=== PATIENT | male | born 1940 | race Two or more races ===

== ENCOUNTER → 2020-07-14 | Outpatient (CLI) | payer OTHER ==
[~2020-07-14] MED LIST: ACET325 PO; AMLO10 PO; ASPI325; ASPI325 PO; ASPI325EC PO; ATOR20 PO; BCOIRO PO; CIPRSO OD; DIPH50; ENAL10 PO; ENAL20 PO; FURO40 PO; GLIM4 PO; INSULANPEN SC; LOVA20 PO; METF500 PO; METO50ER PO; MULVITMIND PO; NIAC500 PO; NIAC500ER PO; OMEP20ER PO; POTA10T PO; POTCHL10ER PO; Prilosec Otc20 MG PO; RANI150 PO; RXOXYACE PO; [UNRECOGNIZED DRUG - OTHER]
== END | disposition home or self-care (01) ==
LOC: LAB SHORT 11:30 → LAB 11:30
DX: S81.801A Unspecified open wound, right lower leg, initial encounter (principal)
CPT/HCPCS: 87070; 87075; 87205

== ENCOUNTER → 2020-08-21 | Outpatient (CLI) | payer OTHER ==
[2020-08-21 13:28] LABS: Alanine Aminotransfer (ALT/SGP 23 U/L (12-78); Albumin, Blood 3.9 g/dL (3.4-5.0); Albumin/Globulin Ratio 0.9 (0.8-1.8); Alk Phos 96 U/L (50-136); Anion Gap 6 mmol/L (6-16); Aspartate Aminotrans (AST/SGOT 13 U/L (12-37); Bilirubin, Total 0.9 mg/dL (0.1-1.0); Blood Urea Nitrogen 25 mg/dL (8-24); Bun/Creatinine Ratio 22.7 (12.0-20.0); CO2, Blood 30 mmol/L (21-32); Calcium, Blood 9.5 mg/dL (8.5-10.1); Chloride, Blood 102 mmol/L (98-108); Globulin, Blood 4.4 g/dL (2.2-4.0); Glomerular Filtration Rate >60 (60-); Glucose, Blood 170 mg/dL (70-99); Sodium, Blood 138 mmol/L (136-145); Total Protein, Blood 8.3 g/dL (6.4-8.2)
[2020-08-21 14:06] LABS: BASOPHILS ABSOLUTE AUTO 0.02 K/mm3 (0.00-0.23); BASOPHILS PERCENT AUTO 0 % (0-2); EOSINOPHILS ABSOLUTE AUTO 0.05 K/mm3 (0.00-0.68); EOSINOPHILS PERCENT AUTO 1 % (0-6); Hematocrit 49.1 % (37.0-53.0); Hemoglobin 16.6 g/dL (13.5-17.5); IMMATURE GRAN ABSOLUTE AUTO 0.03 K/mm3 (0.00-0.10); IMMATURE GRAN PERCENT AUTO 0 % (0-1); LYMPHOCYTES ABSOLUTE AUTO 2.09 K/mm3 (0.84-5.20); LYMPHOCYTES PERCENT AUTO 30 % (21-46); MONOCYTES ABSOLUTE AUTO 0.66 K/mm3 (0.16-1.47); MONOCYTES PERCENT AUTO 10 % (4-13); Mean Corpuscular HGB 31.3 pg (26.0-34.0); Mean Corpuscular HGB Conc 33.8 g/dL (31.5-36.5); Mean Corpuscular Volume 93 fL (80-100); NEUTROPHILS ABSOLUTE AUTO 4.12 K/mm3 (1.96-9.15); NEUTROPHILS PERCENT AUTO 59 % (41-73); RDW Coefficient Variation 12.3 % (11.7-14.2); RDW Standard Deviation 42.3 fL (35.1-46.3); Red Blood Cell Count 5.31 M/mm3 (4.30-5.90); White Blood Cell Count 6.97 K/mm3 (4.00-11.30)
[2020-08-21 14:08] LABS: Mean Platelet Volume 10.5 fL (9.1-12.4); Platelet Count 178 K/mm3 (150-400)
== END ==
LOC: LAB SHORT 10:00 → LAB 10:00
PROVIDERS: Family Medicine
DX: R60.0 Localized edema (principal); Z88.6 Allergy status to analgesic agent
CPT/HCPCS: 80053; 83880; 85025

== ENCOUNTER 2021-02-27 06:42 | Day surgery (SDC) | payer OTHER ==
[~2021-02-27] VITALS: Ht 175.3 cm; Wt 140.8 kg
--- NOTE | 2021-02-27 07:16 | NUR ---
PT AMBULATES TO SDS c SLOW GAIT, INCREASES SOB c EXERTIONS, RECOVERS QUICKLY. History, Chart, Medications and Allergies reviewed before start of procedure. Lungs clear T/O to Auscultation. Patient confirms NPO status and agrees with scheduled surgery. Patient States Post-Procedure ride home has been arranged. CHEM BG 133.
[2021-02-27] MEDS ORDERED: POTA8 PO (07:20)
[2021-02-27] MEDS ORDERED: INSULANI (07:21)
[2021-02-27] MEDS ORDERED: CYCL10 PO (07:21)
[2021-02-27] MEDS ORDERED: FAMO40 PO (07:22)
[2021-02-27] MEDS ORDERED: METF500 PO (07:23)
[2021-02-27] MEDS ORDERED: DABI150C (07:24)
[2021-02-27] MEDS ORDERED: TORSE20 PO (07:25)
--- NOTE | 2021-02-27 08:04 | NUR ---
02/27/21 0804 Gregor Nichols HISTORY,CHART, MEDICATIONS AND ALLERGIES REVIEWED BEFORE START OF PROCEDURE. PATIENT CONFIRMS NPO STATUS AND AGREES WITH SCHEDULED PROCEDURE. 3-LEAD EKG REVIEWED WITH PHYSICIAN PRIOR TO START OF PROCEDURE. MONITOR INTACT WITH CONTINUOUS PULSE OXIMETRY AND INTERMITTENT BP. SUPPLEMENTAL O2 TO BE TITRATED THROUGHOUT PROCEDURE TO MAINTAIN O2 SATURATION ABOVE 90%. PATIENT DETERMINED TO BE ASA APPROPRIATE FOR MODERATE SEDATION PRIOR TO START OF PROCEDURE BY DR. HAYWARD.
--- NOTE | 2021-02-27 09:26 | NUR ---
Patient up to Ambulate independently. Gait steady. Discharge instructions reviewed with patient. Patient verbalizes understanding. Copy given to patient to take home. Discharged via wheelchair to private car for ride home WITH .
== END 2021-02-27 22:50 | disposition home or self-care (01) ==
LOC: ORSCMMR 06:42 → ORD 08:00 → ORSCMMR 08:00
PROVIDERS: Internal Medicine Gastroenterology
PROC: 0DBM8ZX Excision of Descending Colon, Via Natural or Artificial Opening Endoscopic, Diagnostic (ICD-10-PCS; principal; 2021-02-27 08:00)
PROC: 0DBN8ZX Excision of Sigmoid Colon, Via Natural or Artificial Opening Endoscopic, Diagnostic (ICD-10-PCS; principal; 2021-02-27 08:00)
PROC: 0DBL8ZX Excision of Transverse Colon, Via Natural or Artificial Opening Endoscopic, Diagnostic (ICD-10-PCS; principal; 2021-02-27 08:00)
DX: Z12.11 Encounter for screening for malignant neoplasm of colon (principal); Z86.010 Personal history of colon polyps; D12.3 Benign neoplasm of transverse colon; D12.4 Benign neoplasm of descending colon; D12.5 Benign neoplasm of sigmoid colon; I48.20 Chronic atrial fibrillation, unspecified; I25.10 Atherosclerotic heart disease of native coronary artery without angina pectoris; I10 Essential (primary) hypertension; E11.9 Type 2 diabetes mellitus without complications; G47.33 Obstructive sleep apnea (adult) (pediatric); Z79.84 Long term (current) use of oral hypoglycemic drugs; Z79.899 Other long term (current) drug therapy; E66.01 Morbid (severe) obesity due to excess calories; Z68.42 Body mass index [BMI] 45.0-49.9, adult
CPT/HCPCS: 82947; 88305; J2250; J3010; J7120

== ENCOUNTER 2021-04-20 11:37 | Emergency (ER) | payer OTHER ==
[~2021-04-20] VITALS: Ht 175.3 cm; Wt 140.6 kg
[~2021-04-20 11:37] MED LIST changes: +ACET500 PO; +AZIT500 PO; +CEFP200 PO; +CYCL10 PO; +DABI150C PO; +Enalapril Malea20 MG PO; +FAMO40 PO; +Hair, Skin & N1 EACH PO; +IMODIUM A-D2 M1 PO; +INSULANI; +NITR.4SL SL; +POTA8 PO; +TORSE20 PO
[2021-04-20 12:35] LABS: BASOPHILS ABSOLUTE AUTO 0.01 K/mm3 (0.00-0.23); BASOPHILS PERCENT AUTO 0 % (0-2); EOSINOPHILS ABSOLUTE AUTO 0.04 K/mm3 (0.00-0.68); EOSINOPHILS PERCENT AUTO 1 % (0-6); Hematocrit 47.3 % (37.0-53.0); Hemoglobin 15.3 g/dL (13.5-17.5); IMMATURE GRAN ABSOLUTE AUTO 0.01 K/mm3 (0.00-0.10); IMMATURE GRAN PERCENT AUTO 0 % (0-1); LYMPHOCYTES ABSOLUTE AUTO 1.95 K/mm3 (0.84-5.20); LYMPHOCYTES PERCENT AUTO 28 % (21-46); MONOCYTES ABSOLUTE AUTO 0.63 K/mm3 (0.16-1.47); MONOCYTES PERCENT AUTO 9 % (4-13); Mean Corpuscular HGB Conc 32.3 g/dL (31.5-36.5); Mean Corpuscular Volume 96 fL (80-100); Mean Platelet Volume 9.5 fL (9.1-12.4); NEUTROPHILS ABSOLUTE AUTO 4.37 K/mm3 (1.96-9.15); NEUTROPHILS PERCENT AUTO 62 % (41-73); Platelet Count 174 K/mm3 (150-400); RDW Coefficient Variation 12.6 % (11.7-14.2); RDW Standard Deviation 44.1 fL (35.1-46.3); Red Blood Cell Count 4.94 M/mm3 (4.30-5.90); White Blood Cell Count 7.01 K/mm3 (4.00-11.30)
[2021-04-20 12:48] LABS: Alanine Aminotransfer (ALT/SGP 26 U/L (12-78); Albumin, Blood 3.3 g/dL (3.4-5.0); Albumin/Globulin Ratio 0.8 (0.8-1.8); Alk Phos 87 U/L (50-136); Anion Gap 3 mmol/L (6-16); Aspartate Aminotrans (AST/SGOT 19 U/L (12-37); Bilirubin, Total 0.8 mg/dL (0.1-1.0); Blood Urea Nitrogen 15 mg/dL (8-24); Bun/Creatinine Ratio 14.9 (12.0-20.0); CO2, Blood 29 mmol/L (21-32); Calcium, Blood 9.8 mg/dL (8.5-10.1); Chloride, Blood 106 mmol/L (98-108); Creatinine, Blood 1.01 mg/dL (0.60-1.20); Globulin, Blood 4.3 g/dL (2.2-4.0); Glomerular Filtration Rate >60 (60-); Glucose, Blood 133 mg/dL (70-99); Potassium, Blood 4.7 mmol/L (3.5-5.5); Sodium, Blood 138 mmol/L (136-145); Total Protein, Blood 7.6 g/dL (6.4-8.2)
[2021-04-20 13:00] LABS: Troponin I <0.015 ng/mL (0.000-0.040)
== END 2021-04-20 15:29 | disposition home or self-care (01) ==
LOC: ER 11:37
PROVIDERS: Physician Assistant
DX: R53.1 Weakness (principal); R06.00 Dyspnea, unspecified; I11.0 Hypertensive heart disease with heart failure; I50.9 Heart failure, unspecified; I48.20 Chronic atrial fibrillation, unspecified; E11.9 Type 2 diabetes mellitus without complications; G47.30 Sleep apnea, unspecified; I25.10 Atherosclerotic heart disease of native coronary artery without angina pectoris; E78.5 Hyperlipidemia, unspecified; Z87.891 Personal history of nicotine dependence; Z88.6 Allergy status to analgesic agent; Z88.8 Allergy status to other drugs, medicaments and biological substances; Z79.899 Other long term (current) drug therapy; Z79.84 Long term (current) use of oral hypoglycemic drugs; Z79.4 Long term (current) use of insulin
CPT/HCPCS: 36415; 71046; 80053; 84484; 85025; 93005; 93010; 99284-25

== ENCOUNTER 2024-06-22 09:52 | Inpatient (IN) | payer OTHER ==
[~2024-06-22 09:52] MED LIST changes: -AMLO10 PO; +AMLO5 PO; -ATOR20 PO; +ATOR40TA PO; -INSULANI; +INSULANI SC; +LYMEPAK100 MG PO; +METO50 PO; +Metformin HCl750 MG PO; -POTA8 PO; -Prilosec Otc20 MG PO
[2024-06-22 10:16] LABS: BASOPHILS ABSOLUTE AUTO 0.01 K/mm3 (0.00-0.23); BASOPHILS PERCENT AUTO 0 % (0-2); EOSINOPHILS ABSOLUTE AUTO 0.02 K/mm3 (0.00-0.68); EOSINOPHILS PERCENT AUTO 0 % (0-6); Hematocrit 38.5 % (37.0-53.0); Hemoglobin 13.3 g/dL (13.5-17.5); IMMATURE GRAN ABSOLUTE AUTO 0.02 K/mm3 (0.00-0.10); IMMATURE GRAN PERCENT AUTO 0 % (0-1); LYMPHOCYTES ABSOLUTE AUTO 2.36 K/mm3 (0.84-5.20); LYMPHOCYTES PERCENT AUTO 26 % (21-46); MONOCYTES ABSOLUTE AUTO 0.53 K/mm3 (0.16-1.47); MONOCYTES PERCENT AUTO 6 % (4-13); Mean Corpuscular HGB 32.5 pg (26.0-34.0); Mean Corpuscular HGB Conc 34.5 g/dL (31.5-36.5); Mean Corpuscular Volume 94 fL (80-100); NEUTROPHILS PERCENT AUTO 68 % (41-73); Platelet Count 163 K/mm3 (150-400); RDW Standard Deviation 44.8 fL (35.1-46.3); Red Blood Cell Count 4.09 M/mm3 (4.30-5.90); White Blood Cell Count 9.24 K/mm3 (4.00-11.30)
[2024-06-22 11:04] LABS: Albumin, Blood 3.3 g/dL (3.4-5.0); Albumin/Globulin Ratio 0.9 (0.8-1.8); Bilirubin, Total 0.9 mg/dL (0.1-1.0); Bun/Creatinine Ratio 14.9 (12.0-20.0); Calcium, Blood 8.4 mg/dL (8.5-10.1); Creatinine, Blood 1.48 mg/dL (0.60-1.20); Globulin, Blood 3.8 g/dL (2.2-4.0); Potassium, Blood 3.1 mmol/L (3.5-5.5); Total Protein, Blood 7.1 g/dL (6.4-8.2)
[2024-06-22] MEDS ORDERED: ENAL10 PO (11:15)
[2024-06-22] MEDS ORDERED: Isosorbide Mono30 MG PO (11:16)
[2024-06-22] MEDS ORDERED: CYCL10 PO (11:16)
[2024-06-22] MEDS ORDERED: METO50 PO (11:16)
[2024-06-22 12:04] LABS: Influenza A, PCR NEGATIVE (NEGATIVE); Influenza B, PCR NEGATIVE (NEGATIVE); Resp Syncytial Virus, PCR NEGATIVE (NEGATIVE); SARS-Cov-2 (COVID-19) PCR, MMC NEGATIVE (NEGATIVE)
[2024-06-22] MEDS ORDERED: ONDA4ODT MM (12:54)
[2024-06-22] MEDS ORDERED: LOPE2C PO (12:55)
[2024-06-22] MEDS ORDERED: NYSTATIN100000 U13 MT (12:57)
[2024-06-22] MEDS ORDERED: Furosemide 10 MG/ML 10ML Vial IV ONE (16:55)
[2024-06-22] MEDS ORDERED: FLU VACC TS2024-25(6MOS UP)/PF 45 MCG/0.5 ML SYRINGE IM SCH (17:05)
[2024-06-22] MEDS ORDERED: Ondansetron HCl 2 MG / ML 2ML Vial IV PRN (17:05)
[2024-06-22] MEDS ORDERED: Potassium Chloride 40 MEQ in NS 250 ML IV ONE (17:20)
[2024-06-22] MEDS ORDERED: Furosemide 10 MG/ML 4ML Vial IV SCH (18:00)
[2024-06-22] MEDS ORDERED: Enoxaparin 40 MG/0.4 ML SYR SC SCH (18:00)
[2024-06-22] MEDS ORDERED: NS 1,000 ML IV SCH (18:05)
[2024-06-22] MEDS ORDERED: Loperamide HCl 2 MG Cap PO PRN (18:10)
[2024-06-22] MEDS ORDERED: Magnesium Sulf 2 GM/Water 50ML 50 ML IV SCH (19:15)
[2024-06-22 19:54] LABS: Source, Urine Clean Catch
[2024-06-22 20:04] LABS: Bilirubin, Urine Neg (Neg); Blood, Urine Neg (Neg); Glucose Qualitative, Urine Neg (Neg); Ketones, Urine 1+ (Neg); Leukocyte Esterase, Urine 2+ (Neg); Nitrite, Urine Neg (Neg); Protein, Urine Neg (Neg); Urobilinogen, Urine NORM (Normal)
[2024-06-22 20:20] LABS: Appearance, Urine Clear (Clear); Color, Urine Yellow (P-Yellow)
[2024-06-22 20:21] LABS: Bacteria Few /hpf; Red Blood Cells, Urine Not Seen /hpf (0-2); Squamous Epithelial Cells Not Seen /hpf (Few)
[2024-06-22] MEDS ORDERED: OZEMPIC0.25 MG/02 SC (20:59)
[2024-06-22] MEDS ORDERED: SEMGLEE (Y100 UNIT/2 SC (20:59)
[2024-06-22] MEDS ORDERED: Acetaminophen 500 MG Tab PO PRN (21:20)
[2024-06-22] MEDS ORDERED: Cyclobenzaprine HCl 10 MG Tab PO PRN (21:20)
[2024-06-22] MEDS ORDERED: Nitroglycerin 0.4 MG SUBL SL PRN (21:20)
[2024-06-22 21:59] VITALS: BP 141/78
[2024-06-22] MEDS ORDERED: Dabigatran Etexilate Mesylate 150 MG CAPSULE PO SCH (22:00)
[2024-06-23 02:56] LABS: BASOPHILS ABSOLUTE AUTO 0.01 K/mm3 (0.00-0.23); BASOPHILS PERCENT AUTO 0 % (0-2); EOSINOPHILS ABSOLUTE AUTO 0.01 K/mm3 (0.00-0.68); EOSINOPHILS PERCENT AUTO 0 % (0-6); Hematocrit 39.5 % (37.0-53.0); Hemoglobin 13.6 g/dL (13.5-17.5); IMMATURE GRAN ABSOLUTE AUTO 0.03 K/mm3 (0.00-0.10); IMMATURE GRAN PERCENT AUTO 0 % (0-1); LYMPHOCYTES ABSOLUTE AUTO 2.36 K/mm3 (0.84-5.20); LYMPHOCYTES PERCENT AUTO 20 % (21-46); MONOCYTES ABSOLUTE AUTO 0.91 K/mm3 (0.16-1.47); MONOCYTES PERCENT AUTO 8 % (4-13); Mean Corpuscular HGB 32.4 pg (26.0-34.0); Mean Corpuscular HGB Conc 34.4 g/dL (31.5-36.5); Mean Corpuscular Volume 94 fL (80-100); Mean Platelet Volume 10.2 fL (9.1-12.4); NEUTROPHILS ABSOLUTE AUTO 8.46 K/mm3 (1.96-9.15); NEUTROPHILS PERCENT AUTO 72 % (41-73); Platelet Count 184 K/mm3 (150-400); RDW Standard Deviation 44.1 fL (35.1-46.3); White Blood Cell Count 11.78 K/mm3 (4.00-11.30)
[2024-06-23 03:18] LABS: Albumin, Blood 3.4 g/dL (3.4-5.0); Albumin/Globulin Ratio 0.9 (0.8-1.8); Bilirubin, Total 0.8 mg/dL (0.1-1.0); Bun/Creatinine Ratio 15.4 (12.0-20.0); Calcium, Blood 8.4 mg/dL (8.5-10.1); Creatinine, Blood 1.3 mg/dL (0.60-1.20); Globulin, Blood 3.9 g/dL (2.2-4.0); Potassium, Blood 3.7 mmol/L (3.5-5.5); Total Protein, Blood 7.3 g/dL (6.4-8.2)
[2024-06-23] MEDS ORDERED: Omeprazole 20 MG CapCR PO SCH (06:00)
[2024-06-23 06:01] VITALS: BP 137/79
--- NOTE | 2024-06-23 06:40 | NUR ---
SHIFT SUMMARY PATIENT HAS BEEN ABLE TO GET A LITTLE SLEEP DURING THE NIGHT. HE STATES HE IS FEELING BETTER THIS MORNING. HE HAS NOT HAD ANY EPISODES OF NAUSEA OR DIARRHEA. PATIENT IS ORIENTED X4. HE HAS HIS CALL LIGHT WITHIN REACH AND HIS BED ALARM IS SET. SAFETY PRECAUTIONS ARE BEING MAINTAINED. IS AT THE BEDSIDE.
[2024-06-23 07:39] VITALS: BP 125/68
[2024-06-23] MEDS ORDERED: Metoprolol Tartrate 50 MG Tab PO SCH (08:00)
[2024-06-23] MEDS ORDERED: Torsemide 20 MG TAB PO SCH (09:00)
[2024-06-23] MEDS ORDERED: Insulin Glargine-Yfgn 100 Unit/mL 3 ML SYR SC SCH (09:00)
[2024-06-23] MEDS ORDERED: Isosorbide Mononitrate 30 MG TABCR PO SCH (09:00)
[2024-06-23] MEDS ORDERED: Zinc Sulfate 220 MG Cap (Provides 50MG) PO SCH (11:50)
[2024-06-23] MEDS ORDERED: Magnesium Sulf 2 GM/Water 50ML 50 ML IV SCH (12:10)
[2024-06-23 12:33] VITALS: BP 115/61
[2024-06-23 16:52] VITALS: BP 114/72
[2024-06-23 19:14] LABS: Adenovirus F 40/41 Not Detected (NOT DETECT); Astrovirus Not Detected (NOT DETECT); Campylobacter Sp Not Detected (NOT DETECT); Cryptosporidium Not Detected (NOT DETECT); Cyclospora Cayetanensis Not Detected (NOT DETECT); E. Coli O157 Not Detected (NOT DETECT); Entamoeba Histolytica Not Detected (NOT DETECT); Enteroaggregative E. coli-EAEC Not Detected (NOT DETECT); Enteropathogenic E. coli-EPEC Not Detected (NOT DETECT); Enterotoxigenic E. coli-ETEC Not Detected (NOT DETECT); Giardia Lamblia Not Detected (NOT DETECT); Norovirus GI/GII Not Detected (NOT DETECT); Plesiomonas Shigelloides Not Detected (NOT DETECT); Rotavirus A Not Detected (NOT DETECT); Salmonella Sp Not Detected (NOT DETECT); Sapovirus Not Detected (NOT DETECT); Shiga Toxin-prod E. coli-STEC Not Detected (NOT DETECT); Shigella/Enteroin E. coli-EIEC Not Detected (NOT DETECT); Vibrio Cholerae Not Detected (NOT DETECT); Vibrio Sp Not Detected (NOT DETECT); Yersinia Enterocolitica Not Detected (NOT DETECT)
--- NOTE | 2024-06-23 19:27 | NUR ---
SHIFT SUMMARY PATIENT MEDICATED THIS AM FOR NASEA AND VOMITING AFTER GETTING UP FROM CHAIR AND LIGHTHEADED. NO FURTHER N/V EPISODES THROUGH DAY. HE IS TOLERATING FULL LIQUID DIET FOR LUNCH AND DINNER. BED IN LOW POSITION, CALL LIGHT IN REACH. AT BEDSIDE. HE IS OREINTEDX4 AND ABLE TO MAKE NEEDS KNOWN.
[2024-06-23 21:29] VITALS: BP 120/68
[2024-06-24] VITALS (10 sets, daily range): BP systolic 91–126; BP diastolic 57–82
[2024-06-24 06:01] LABS: BASOPHILS ABSOLUTE AUTO 0.01 K/mm3 (0.00-0.23); BASOPHILS PERCENT AUTO 0 % (0-2); EOSINOPHILS ABSOLUTE AUTO 0.04 K/mm3 (0.00-0.68); EOSINOPHILS PERCENT AUTO 1 % (0-6); Hematocrit 36.6 % (37.0-53.0); Hemoglobin 12.3 g/dL (13.5-17.5); IMMATURE GRAN ABSOLUTE AUTO 0.01 K/mm3 (0.00-0.10); IMMATURE GRAN PERCENT AUTO 0 % (0-1); LYMPHOCYTES ABSOLUTE AUTO 1.78 K/mm3 (0.84-5.20); LYMPHOCYTES PERCENT AUTO 24 % (21-46); MONOCYTES ABSOLUTE AUTO 0.71 K/mm3 (0.16-1.47); MONOCYTES PERCENT AUTO 10 % (4-13); Mean Corpuscular HGB 32.1 pg (26.0-34.0); Mean Corpuscular HGB Conc 33.6 g/dL (31.5-36.5); Mean Corpuscular Volume 96 fL (80-100); Mean Platelet Volume 10.4 fL (9.1-12.4); NEUTROPHILS ABSOLUTE AUTO 4.81 K/mm3 (1.96-9.15); NEUTROPHILS PERCENT AUTO 66 % (41-73); Platelet Count 152 K/mm3 (150-400); RDW Standard Deviation 45.7 fL (35.1-46.3); Red Blood Cell Count 3.83 M/mm3 (4.30-5.90); White Blood Cell Count 7.36 K/mm3 (4.00-11.30)
[2024-06-24 06:16] LABS: Albumin, Blood 3.2 g/dL (3.4-5.0); Anion Gap 11 mmol/L (3-11); Blood Urea Nitrogen 21 mg/dL (8-24); Bun/Creatinine Ratio 15.1 (12.0-20.0); CO2, Blood 30 mmol/L (21-32); Calcium, Blood 7.8 mg/dL (8.5-10.1); Chloride, Blood 102 mmol/L (98-108); Creatinine, Blood 1.39 mg/dL (0.60-1.20); Glomerular Filtration Rate 51 (60-); Glucose, Blood 131 mg/dL (70-99); Magnesium, Blood 1.7 mg/dL (1.6-2.4); Phosphorus, Blood 2.4 mg/dL (2.5-4.9); Potassium, Blood 3.5 mmol/L (3.5-5.5); Sodium, Blood 139 mmol/L (136-145)
[2024-06-24] MEDS ORDERED: Lactated Ringer's 1,000 ML IV ONE (08:05)
[2024-06-24] MEDS ORDERED: Potassium Phosphate,Monobasic 500 MG Tablet PO SCH (09:00)
[2024-06-24] MEDS ORDERED: Zinc Sulfate 220 MG Cap (Provides 50MG) PO SCH (09:00)
[2024-06-24] MEDS ORDERED: Caffeine Citrated 60 MG/3 ML Vial ONE (10:06)
[2024-06-24] MEDS ORDERED: Regadenoson 0.4 MG/5 ML SYRINGE ONE (10:06)
--- NOTE | 2024-06-24 12:38 | NUR ---
1235 PT REPORTS FEELING DIZZY BP 91/57 PT ASSISTED BACK TO BED FROM CHAIR WITH GAIT BELT. WALKER AND 2 PERSON ASSIST FAMILY MEMBERS AT BEDSIDE
[2024-06-24] MEDS ORDERED: Furosemide 10 MG/ML 4ML Vial IV SCH ×2 (13:00→18:00)
--- NOTE | 2024-06-24 14:04 | NUR ---
CALLED DR LIZAMA- PT HAD A SBP 91. BREAK RN HELD LASIX AND ASSISTED THE PT BACK TO THE BED FROM THE CHAIR, THIS RN RECHECKED BP ABOUT 1 HOUR LATER AND SBP WAS 118 WHILE LAYING FLAT. SPOKE TO DR LIZAMA AND RECIEVED A OT ORDER FOR ORTHOSTATIC VITALS. ORTHOSTATIC VITALS: LYING 111/72 P 67 SITTING 126/77 P 84 STANDING 105/[address] LIZAMA WITH THE RESULTS. PT WAS ASSSISTED BACK TO BED AND DECLINED TO DRINK THE K-PHOS. ORDER RECIEVED TO HOLD THIS DOSE OF LASIX.
--- NOTE | 2024-06-24 18:25 | NUR ---
PT WENT TO DAY SURG FOR UPPER AND LOWER SCOPE- DAY ASSOCIATE [facility] [employer] CALLED THE PT HAD A C/O A TERRIBLE HEADACHE. PT STATES THE TORADOL SHE RECIEVED ONE TIME YESTERDAY REALLY HELPED AND REQUESTED AN ADDITIONAL DOSE OF THAT. CALLED DR PATTERSON AND RECIEVED AN ORDER FOR A OT DOSE OF TORADOL IF THE PT DOES NOT HAVE ANY BLEEDING ULCERS FOUND IN HER SCOPE.
--- NOTE | 2024-06-24 18:53 | NUR ---
SHIFT SUMMARY- PT SEEMS A BIT MORE CONFUSED THIS EVENING. BP DROPPPED LOWER TODAY AND HE WAS UNABLE TO RECIEVE THE IV LASIX ORDERED. SPOKE TO DR LIZAMA ATTHE TIME EACH DOSE WAS HELD AND RECIEVED A VERBAL ORDER TO HOLD THE DOSE. THIS EVENING THE PT FAMILY CAME TO SEE HIM (SON AND DTR-IN-LAW) THEY STATED THEY ARE VERY CONCERNED, THE PT IS VERY DIFFERENT THAN HE IS NORMALLY. SPOKE TO DR LIZAMA AND CONVEYED THEIR CONCERN WELL HIS LAST BP CHECK WHILE LYING. ORDER TO HOLD LASIX THIS EVENING AND FOR A CT HEAD TO R/O STROKE. PT SPEECH SEEMS MORE SLURRED THIS EVENING, WHEN COMPARED TO THIS MORNING. PT IS SITTING UP IN BED, CALL LIGHT IN REACH NO S&S OF DISTRESS NOTED.
[2024-06-25] VITALS (11 sets, daily range): BP systolic 113–151; BP diastolic 69–97
--- NOTE | 2024-06-25 04:06 | NUR ---
SHIFT SUMMARY PATIENT HAD NO ACUTE CHANGES. ALERT AND ORIENT X 3 WITH CONFUSION AT TIMES. PIV INTACT. TELE MONITOR AFIB 77. CBG 167. REPORTED BACK SPASM AND FLEXERIL GIVEN PER EMAR AND LATER TYLENOL. DENIES CHEST PAIN, SOB, AND N/V. VSS/AFEBRILE. ZIO PATCH PRESENT. SPOUSE STAYED OVER NIGHT. CALL LIGHT IN REACH. BED IN LOWEST POSITION. WILL CONTINUE TO MONITOR UNTIL DAY SHIFT NURSE ASSUMES CARE.
[2024-06-25] MEDS ORDERED: Empagliflozin 10 MG TAB PO SCH (09:00)
[2024-06-25 11:26] LABS: Base Excess Venous 8.8 mmol/L; Bicarbonate Venous 31.3 mmol/L (24.0-30.0); PCO2 Venous 48.7 mmHg (38-42); pH Blood Venous 7.44 (7.34-7.37)
[2024-06-25 11:41] LABS: BASOPHILS ABSOLUTE AUTO 0.02 K/mm3 (0.00-0.23); BASOPHILS PERCENT AUTO 0 % (0-2); EOSINOPHILS ABSOLUTE AUTO 0.02 K/mm3 (0.00-0.68); EOSINOPHILS PERCENT AUTO 0 % (0-6); Hematocrit 38.4 % (37.0-53.0); Hemoglobin 13.2 g/dL (13.5-17.5); IMMATURE GRAN ABSOLUTE AUTO 0.02 K/mm3 (0.00-0.10); IMMATURE GRAN PERCENT AUTO 0 % (0-1); LYMPHOCYTES PERCENT AUTO 21 % (21-46); MONOCYTES ABSOLUTE AUTO 0.71 K/mm3 (0.16-1.47); MONOCYTES PERCENT AUTO 10 % (4-13); Mean Corpuscular HGB 32.3 pg (26.0-34.0); Mean Corpuscular HGB Conc 34.4 g/dL (31.5-36.5); Mean Corpuscular Volume 94 fL (80-100); Mean Platelet Volume 10.1 fL (9.1-12.4); NEUTROPHILS ABSOLUTE AUTO 5.12 K/mm3 (1.96-9.15); NEUTROPHILS PERCENT AUTO 68 % (41-73); Platelet Count 175 K/mm3 (150-400); RDW Coefficient Variation 12.9 % (11.7-14.2); RDW Standard Deviation 44.5 fL (35.1-46.3); Red Blood Cell Count 4.09 M/mm3 (4.30-5.90); White Blood Cell Count 7.49 K/mm3 (4.00-11.30)
[2024-06-25 12:32] LABS: Albumin, Blood 3.1 g/dL (3.4-5.0); Albumin/Globulin Ratio 0.8 (0.8-1.8); Bilirubin, Total 0.9 mg/dL (0.1-1.0); Bun/Creatinine Ratio 15.6 (12.0-20.0); Creatinine, Blood 1.09 mg/dL (0.60-1.20); Magnesium, Blood 1.6 mg/dL (1.6-2.4); Phosphorus, Blood 1.8 mg/dL (2.5-4.9); Potassium, Blood 3.9 mmol/L (3.5-5.5); Thyroid Stimulating Hormone 1.16 uIU/mL (0.360-4.800); Total Protein, Blood 7.1 g/dL (6.4-8.2)
[2024-06-25] MEDS ORDERED: Albuterol 2.5 MG/3 ML VIAL INH PRN (13:05)
[2024-06-25] MEDS ORDERED: Lidocaine 2% Viscous Soln 20 ML,Nystatin 100,000 Unit/ml Susp 20 ML,Mag Hydrox/Al Hydro... MT PRN (13:10)
[2024-06-25] MEDS ORDERED: Potassium Phosphate Dibasic 30 MM in Dextrose 5% 500 ML IV STA (14:29)
[2024-06-25] MEDS ORDERED: Mag Sulfate 1 GM/D5% 100ML 100 ML IV STA (14:29)
[2024-06-25] MEDS ORDERED: NS 500 ML IV SCH (15:20)
[2024-06-25] MEDS ORDERED: NS 250 ML IV PRN (15:20)
--- NOTE | 2024-06-25 16:26 | NUR ---
SHIFT SUMMARY- DR LIZAMA CAME TO SPEAK TO THE PT FAMILY ABOUT THE POSITIVE STRESS TEST HE HAD COMPLETED YESTERDAY, CARDIOLOGY WAS CONSULTED AND CAAME TO SEE THE PT. PT WOKE AFTER VBG WAS COMPLETED AND HE WAS PLACED ON 2L O2 VIA NC. HE WAS ALERT AND TALKING WHEN CARDIOLOGY CAME TO SEE HIM. PT TOLD CARDIOLOGY HE GETS DIZZY WHEN HE TURNS HIS HEAD TO THE RIGHT. CARDIOLOGY REQUESTED A COROTID DUPLEX TO BE COMPLETED. PHYSICAL THERAPY CAME TO SEE THE PT A BIT LATER IV MAG AND IV K-PHOS STARTED AND PT WAS TRANSFERED TO THE CHAIR BY THERAPY. PT HAS SOME VISIBLE DISCOLORATION TO HIS TOUNG. PRN NYSTATIN SWISH AND SWALLOW WAS ORDERED AND GIVEN AT ABOUT 1600. PT IS SITTING UP VISITING WITH HIS FAMILY NO S&S OF DISTRESS NOTED. WILL PASS ON TO ONCOMING RN IN REPORT.
--- NOTE | 2024-06-25 16:47 | NUR ---
IV LASIX DC'D CARDIOLOGY SUGESTED HOLDING TONIGHTS DOSE OF IV LASIX. CALLED DR LIZAMA TO CLARIFY. RECIEVED AN ORDER TO DC THE IV LASIX. ORDER DC'D IN ORDER MANAGEMENT.
--- NOTE | 2024-06-25 19:19 | NUR ---
Pt doing ok post surgery, he is having a lot of pain, called and recieved orders for more pain meds, administered fentanyl with some relief, jose drained 40mls, no further changes this shift. call light in reach.
--- NOTE | 2024-06-25 19:22 | NUR ---
pt sitting up in chair eating dinner, at bedside, no acute changes this shift, during the few hrs this nurse has had this pt. call light in reach.
[2024-06-25] MEDS ORDERED: Miconazole Nitrate 2% 85 GM PWD TOP SCH (21:00)
[2024-06-26 00:26] VITALS: BP 130/84
[2024-06-26 04:32] VITALS: BP 147/82
--- NOTE | 2024-06-26 05:53 | NUR ---
SHIFT SUMMARY PT ALERT ORIENTED X 4 ABLE TO VERBALIZE NEEDS REQUIRES 2 PERSON FOR TRANSFER. GETS UP IN CHAIR. HE HAS A MALE PUREWICK ON AND VOIDING WELL. HIS STAYS AT THE BEDSIDE VSS ON 2L VIA NC SATTING AT 96%. C/O BACK PAIN MEDICATED WITH TYLENOL AND FLEXERIL WITH GOOD PAIN RELIEF. HE HAD A CAROTID ULTRASOUND DONE LAST NIGHT. HE REFUSES TO WEAR A CPAP AND STATED THAT HE FEELS LIKE HES SUFFOCATING WITH IT ON. REMAINS ON TELEMETRY AT [facility] WITH [facility] AT 80. HE HAD A CAROTID ULTRASOUND DONE LAST NIGHT NO C/O CHEST PAIN OR PRESSURE. RESTING IN BED AT THIS TIME WITH CALL LIGHT IN REACH
[2024-06-26 06:33] LABS: Albumin, Blood 3.1 g/dL (3.4-5.0); Anion Gap 11 mmol/L (3-11); Blood Urea Nitrogen 21 mg/dL (8-24); Bun/Creatinine Ratio 18.1 (12.0-20.0); CO2, Blood 28 mmol/L (21-32); Calcium, Blood 8.1 mg/dL (8.5-10.1); Chloride, Blood 102 mmol/L (98-108); Creatinine, Blood 1.16 mg/dL (0.60-1.20); Glomerular Filtration Rate 63 (60-); Glucose, Blood 168 mg/dL (70-99); Magnesium, Blood 1.9 mg/dL (1.6-2.4); Potassium, Blood 3.8 mmol/L (3.5-5.5); Sodium, Blood 137 mmol/L (136-145)
[2024-06-26 07:35] VITALS: BP 139/79
[2024-06-26] MEDS ORDERED: Torsemide 20 MG TAB PO SCH (09:00)
[2024-06-26 11:45] VITALS: BP 131/88
[2024-06-26] MEDS ORDERED: Methocarbamol 500 MG Tab PO PRN (12:55)
[2024-06-26 19:51] VITALS: BP 141/79
--- NOTE | 2024-06-26 20:24 | NUR ---
SHIFT SUMMARY- BEDSIDE REPORT COMPLETED WITH NIGHT RN. PT STATED HE HAD TO USE THE BATHROOM. 2 STAFF ASSISTED HIM TO THE BSC. THE PT PULLED ON HIS PUREWICK ONCE ON THE COMMODE. PT THEN BEGAN URINATING ON THE FLOOR, A LARGE VOLUME OF URINE WAS UNMEASURED. PUREWICK WAS DC'D AND ATTENDS PLACED. PT SPOUSE IS AT THE BEDSIDE. NIGHT STAFF ASSISTED THE PT BACK TO BED AFTER THE COMMODE. NO S&S OF DISTRESS NOTED.
--- NOTE | 2024-06-26 23:24 | NUR ---
PT'S PULLED ME ASIDE TO TELL ME THAT SHE DOES NOT WANT HER TO KNOW THAT SHE IS ASKING BUT SHE DOES NOT FEEL COMFORTABLE OR SAFE TAKING HIM HOME IN HIS CONDITION. PT'S WOULD LIKE HIM TO BE PLACED IN AN INPATIENT REHAB OR SNF. PT IS UNSTEADY ON FEET AND IS A 2 PERSON TRANSFER TO [facility]. PT IS COMPLIANT WITH CARE BUT FORGETFUL WITH SOME CONFUSION AT TIME.
[2024-06-26 23:54] VITALS: BP 155/91
[2024-06-27] MEDS ORDERED: Cyclobenzaprine HCl 10 MG Tab PO SCH ×2 (03:25→03:35)
--- NOTE | 2024-06-27 03:26 | NUR ---
CALLED THE HOSPITALIST BECAUSE PT WAS ASKING FOR FLEXARIL THAT HE TAKES AT HOME FOR HIS NECK SPASMS. PT STATES IT ALSO HELPS HIM SLEEP
[2024-06-27 05:40] LABS: Hemoglobin 14.7 g/dL (13.5-17.5); Mean Corpuscular HGB 32.2 pg (26.0-34.0); Mean Corpuscular HGB Conc 34.2 g/dL (31.5-36.5); Mean Corpuscular Volume 94 fL (80-100); Mean Platelet Volume 10.3 fL (9.1-12.4); Platelet Count 203 K/mm3 (150-400); RDW Standard Deviation 44.2 fL (35.1-46.3); Red Blood Cell Count 4.57 M/mm3 (4.30-5.90); White Blood Cell Count 9.95 K/mm3 (4.00-11.30)
--- NOTE | 2024-06-27 05:53 | NUR ---
SHIFT SUMM: PT IS A 83 YO FLL CODE WHO WAS ADMITTED FOR RESP FAILURE. PT IS ON TELE WITH AFIB IN THE 90'S. PT IS A BLADDER SCAN Q SHIFT AND A 2 PERSON MAX TO THE [facility]. PT IS ON CONT PULSE OX AND 2L OF OX. PT HAS A PURE WICK ON. PT HAS AT [facility] WHO HAS STAYED THE NIGHT W/HIM. PT HAS BEEN AGITATED MOST OF THE NIGHT AND STATES HE WILLBE LEAVING THE HOSPITAL WHEN HIS DAUGHTER COMES. PT IS IMPULSIVE AND WILL NOT CALL WHEN HE WANTS TO GET UP...BED ALARM IS SET AND CHAIR ALARM IS SET FOR SAFETY. PT SAYS HE WANTS TO BE ABLE TO GO TO THE BATHROOM ON HIS OWN AND I EDUCATED THE IMPORTANCE OF ME HELPING HIM FOR SAFETY. PT HAS BEEN ON AND OFF ARGUING WITH AND DOES NOT WANT TO STAY AT HOSPITAL. PT IS STARTING TO OULL OFF TELE LEADS MORE OFTEN AND PURE WICK. PT HAS CALL LIGHT AND CHAIR ALARM SET.
[2024-06-27 06:08] LABS: Magnesium, Blood 1.8 mg/dL (1.6-2.4)
[2024-06-27 06:09] LABS: Albumin, Blood 3.4 g/dL (3.4-5.0); Anion Gap 11 mmol/L (3-11); Blood Urea Nitrogen 29 mg/dL (8-24); Bun/Creatinine Ratio 21.8 (12.0-20.0); CO2, Blood 30 mmol/L (21-32); Calcium, Blood 9.3 mg/dL (8.5-10.1); Chloride, Blood 99 mmol/L (98-108); Creatinine, Blood 1.33 mg/dL (0.60-1.20); Glomerular Filtration Rate 53 (60-); Glucose, Blood 231 mg/dL (70-99); Phosphorus, Blood 2.6 mg/dL (2.5-4.9); Potassium, Blood 4.6 mmol/L (3.5-5.5); Sodium, Blood 135 mmol/L (136-145)
[2024-06-27 07:43] VITALS: BP 156/125
[2024-06-27 07:45] VITALS: BP 147/89
[2024-06-27 12:25] VITALS: BP 129/83
--- NOTE | 2024-06-27 12:45 | NUR ---
PT SITTING IN CHAIR AND IMPULSIVE DESPITE REMINDERS THAT HE NEEDS TO CALL PRIOR TO GETTING UP D/T WEAKNESS AND BEING UNSTEADY. AFTER HEARING THE CHAIR ALARM THIS RN CAME INTO THE ROOM AND THE PT RELAYED THAT HE NEEDED TO USE THE RESTROOM. WHILE SETTING UP THE BSC NEXT TO THE CHAIR THE PT GOT UP AND STATED THAT HE WOULD NOT USE THE BSC. HE PROCEEDED TO WALK TO THE HALLWAY, RIPPING OFF THE PURWICK AND CONT PULSE OX, AND WAS NOT REDIRECTABLE BACK INTO THE ROOM STATING HE WAS GOING TO LEAVE. THE PT CONTINUED TO PROCEED DOWN THE ZAMORA WITH THIS RN AND THE ICE CREAM DIPPER ATTEMPTING TO DIRECT THE PT BACK TO HIS ROOM TO WHICH THE PT STATED THAT HE WAS GOING TO "START SWINGING". THE PT WAS VERY UNSTEADY ON HIS FEET AND WAS EVENTUALLY REDIRECTED BACK TO HIS ROOM WITH A MAX ASSIST. THE PT REFUSED TO SIT BACK ON THE CHAIR WITH THE CHAIR ALARM AND CONTINUED TO PULL OFF HIS TELE. PHYSICAN NOTIFIED.
[2024-06-27 16:46] VITALS: BP 161/103
--- NOTE | 2024-06-27 18:44 | NUR ---
SHIFT SUMMARY PT IS A/OX3, CONFUSION AT TIMES CURRENT SITUATION. 2 PERSON ASSIST TO CHAIR/BSC. DR LIAO AT BEDSIDE THIS MORNING AND PT BEGAN REPORTING CHEST PAIN. EKG COMPLETED. CHEST PAIN RESOLVED WITHIN A FEW MINUTES. PT CONT/INCONT OF BLADDER, LARGE AMOUNTS OF URINE OUTPUT THIS MORNING. PURWICK REMOVED AND DISCONNECTED. ON RA THROUGHOUT THIS AFTERNOON AND THIS EVENING, SATS MAINTIANING >90% USING CONT PULSE OX. PT AGGITATED, IMPULSIVE, AND NON REDIRECTABLE THIS AFTERNOON, SEE PREVIOUS NOTE. PT'S AT BEDSIDE THROUGHOUT THIS SHIFT.
[2024-06-27 20:22] VITALS: BP 143/83
--- NOTE | 2024-06-28 03:29 | NUR ---
SENIOR CYTOGENETIC TECHNOLOGIST SUMMARY VSS. CONFUSED AND DIFFICULT TO REDIRECT AT HS. INTERMITTENTLY PULLS OFF CONT PULSE OX. O2 SATS IN THE 90'S AT ROOM AIR. AT BEDSIDE FOR COMFORT. TOLERATED HS MEDS WELL. TYLENOL PO X ONE FOR BACK DISCOMFORT, THEN WENT BACK TO BED WITH HOB ELEVATED AND HAS BEEN RESTING QUIETLY WITH FEW INTERRUPTIONS SINCE. ABLE TO REPOSITION SELF IN BED FOR COMFORT. RAILS UP X 2, CALL LIGHT IN REACH AND BED IN LOW POSITION FOR SAFETY. WILL CONT TO MONITOR AND ASSIST NEEDED.
[2024-06-28 04:54] VITALS: BP 139/82
[2024-06-28 09:24] VITALS: BP 154/96
[2024-06-28] MEDS ORDERED: JARDIANCE10 MG PO (12:13)
[2024-06-28] MEDS ORDERED: NYSTATIN100000 U10 MT (12:14)
--- NOTE | 2024-06-28 13:15 | NUR ---
PT DISCHARGED TO HOME WITH . DISCHARGE INSTRUCTIONS PROVIDED AND EDUCATED ON PRIOR TO DISCHARGE. MEDICATIONS FAXED TO [facility]. ALL VALUABLES RETURNED AND SENT HOME WITH THE PT.
== END 2024-06-28 13:04 | disposition home health service (06) | DRG 291 ==
LOC: ER 09:52 → PCU 09:53 → ER 09:53 → MEDS 16:59 → ENPENDDIS 06-28 12:13 → MEDS 06-28 13:04
PROVIDERS: Emergency Medicine; Family Medicine; ADMIT Internal Medicine
DX: I11.0 Hypertensive heart disease with heart failure (principal); I50.33 Acute on chronic diastolic (congestive) heart failure; J96.01 Acute respiratory failure with hypoxia; N17.9 Acute kidney failure, unspecified; G93.40 Encephalopathy, unspecified; Z68.41 Body mass index [BMI] 40.0-44.9, adult; I48.92 Unspecified atrial flutter; I45.2 Bifascicular block; K21.9 Gastro-esophageal reflux disease without esophagitis; E87.6 Hypokalemia; E83.42 Hypomagnesemia; I35.0 Nonrheumatic aortic (valve) stenosis; G47.33 Obstructive sleep apnea (adult) (pediatric); I25.118 Atherosclerotic heart disease of native coronary artery with other forms of angina pectoris; K52.9 Noninfective gastroenteritis and colitis, unspecified; I65.21 Occlusion and stenosis of right carotid artery; E66.813 Obesity, class 3; E78.5 Hyperlipidemia, unspecified; E03.9 Hypothyroidism, unspecified; E86.0 Dehydration; M62.838 Other muscle spasm; D64.9 Anemia, unspecified; E83.39 Other disorders of phosphorus metabolism; Z88.6 Allergy status to analgesic agent; Z88.8 Allergy status to other drugs, medicaments and biological substances; Z85.46 Personal history of malignant neoplasm of prostate; Z79.4 Long term (current) use of insulin; Z79.84 Long term (current) use of oral hypoglycemic drugs; Z95.3 Presence of xenogenic heart valve; Z85.038 Personal history of other malignant neoplasm of large intestine; Z90.49 Acquired absence of other specified parts of digestive tract; Z95.1 Presence of aortocoronary bypass graft; Z87.891 Personal history of nicotine dependence; Z79.85 Long-term (current) use of injectable non-insulin antidiabetic drugs
CPT/HCPCS: 0241U; 36415; 51798; 70450; 70498; 71045; 71260; 76770; 80053; 80069; 81001; 82803; 82947; 83735; 83880; 84100; 84443; 84484; 85025; 85027; 85379; 87086; 87507; 93005; 93010; 93017; 93880; 94640; 94664; 94760; 94762; 97110; 97116; 97162; 97530; A9270; J0706; J1650; J1815; J1940; J2405; J2785; J3475; J3480; J7040; J7050; J7060; Q9967

== ENCOUNTER 2024-07-13 08:02 | Day surgery (SDC) | payer OTHER ==
[2024-07-13] VITALS (10 sets, daily range): BP systolic 126–177; BP diastolic 79–111
[~2024-07-13 08:02] MED LIST changes: +Isosorbide Mono30 MG PO; +JARDIANCE10 MG PO; +LOPE2C PO; +NYSTATIN100000 U10 MT; +NYSTATIN100000 U13 MT; +ONDA4ODT MM; +OZEMPIC0.25 MG/02 SC; +SEMGLEE (Y100 UNIT/2 SC
[2024-07-13] MEDS ORDERED: Metoprolol Tartrate 50 MG Tab PO ONE (08:55)
[2024-07-13] MEDS ORDERED: Isosorbide Mononitrate 30 MG TABCR PO ONE (08:55)
[2024-07-13] MEDS ORDERED: Metoprolol Succinate 50 MG TABCR PO ONE (08:55)
[2024-07-13] MEDS ORDERED: Aspirin 325 MG Tab PO ONE (08:55)
[2024-07-13] MEDS ORDERED: NS 250 ML IV ONE (09:29)
[2024-07-13] MEDS ORDERED: Verapamil HCL 2.5 MG/ML 2ML Injection ONE (09:29)
[2024-07-13] MEDS ORDERED: Heparin Sodium 1000 Units/ML 10ML MDV ONE ×2 (09:29→09:57)
[2024-07-13] MEDS ORDERED: NS 1,000 ML IV ONE ×2 (09:29→09:50)
[2024-07-13] MEDS ORDERED: Nitroglycerin 2 MG/20 ML BTL ONE (09:30)
[2024-07-13] MEDS ORDERED: FentaNYL Citrate 50 MCG/ML 2 ML Injection ONE (09:54)
[2024-07-13] MEDS ORDERED: Midazolam HCl 1MG / ML 2ML Vial ONE (09:54)
[2024-07-13] MEDS ORDERED: NS 500 ML IV ONE ×2 (09:57→10:10)
--- NOTE | 2024-07-13 11:47 | NUR ---
PT BACK TO RECOVERY FROM LAB. GROIN SITE SOFT AND NON-TENDER PER PT. NO BLEEDING NOTED. PT GIVEN WATER BY [facility]. DR TENA AT BEDSIDE DISCUSSING PROCEDURE AND FUTURE PLAN OF CARE W/ PT.
--- NOTE | 2024-07-13 12:14 | NUR ---
PT SAT TO 30 DEGREES. GROIN SITE SOFT AND NON-TENDER PER PT. NO BLEEDING NOTED.
--- NOTE | 2024-07-13 12:42 | NUR ---
R FEM GROIN SITE SOFT NON-TENDER WITH NO HEMATOMA, NO BLEEDING AND INTACT DRESSING. PT'S IN ROOM. CALL LIGHT IN REACH.
--- NOTE | 2024-07-13 13:21 | NUR ---
pt readjusted in bed and is sitting up eating lunch. groin site and brachial site are both soft and non-tender per pt. no bleeding noted.
--- NOTE | 2024-07-13 14:42 | NUR ---
pt given dc instructions and verbalized understanding. iv out. pt changed. groin and brachial site soft and non-tender per pt. no bleeding/hematoma noted. pt taken to [facility] via [facility] to drive pt home.
== END 2024-07-13 14:46 | disposition home or self-care (01) ==
LOC: MHTC 08:02
DX: I25.10 Atherosclerotic heart disease of native coronary artery without angina pectoris (principal); I25.2 Old myocardial infarction; I27.20 Pulmonary hypertension, unspecified; I35.0 Nonrheumatic aortic (valve) stenosis; I11.0 Hypertensive heart disease with heart failure; I50.32 Chronic diastolic (congestive) heart failure; E78.5 Hyperlipidemia, unspecified; E11.9 Type 2 diabetes mellitus without complications; E03.9 Hypothyroidism, unspecified; G47.33 Obstructive sleep apnea (adult) (pediatric); I48.21 Permanent atrial fibrillation; E66.01 Morbid (severe) obesity due to excess calories; Z68.41 Body mass index [BMI] 40.0-44.9, adult; Z87.891 Personal history of nicotine dependence; Z95.1 Presence of aortocoronary bypass graft; Z79.4 Long term (current) use of insulin; Z79.85 Long-term (current) use of injectable non-insulin antidiabetic drugs; Z79.899 Other long term (current) drug therapy; Z88.0 Allergy status to penicillin; Z88.6 Allergy status to analgesic agent; Z88.5 Allergy status to narcotic agent; Z88.8 Allergy status to other drugs, medicaments and biological substances
CPT/HCPCS: 76937; 93461; 99152; 99153; A9270; C1760; C1769; C1887; C1894; J1644; J2250; J3010; J7030; J7040; J7050; Q9967